=== PATIENT | female | born 1985 | race African-American/Black ===

== ENCOUNTER 2021-07-15 20:11 | Emergency (ER) | payer MEDICAID ==
[~2021-07-15] VITALS: Ht 162.6 cm; Wt 54.4 kg
[2021-07-15 20:26] VITALS: BP_SYST 129
--- NOTE | 2021-07-15 20:30 | NUR ---
Patient to ER bed 02 to gown for evaluation. Side rails up.
--- NOTE | 2021-07-15 20:45 | NUR ---
ER provider present in room.
[2021-07-15] MEDS ORDERED: METOCLOPRAMIDE HCL 10 MG/2 ML VIAL IVP ONE (21:00)
[2021-07-15] MEDS ORDERED: NACL 0.9% 1,000 ML IV ONE (21:00)
[2021-07-15] MEDS ORDERED: KETOROLAC TROMETHAMINE 30 MG VIAL IVP ONE (21:00)
[2021-07-15] MEDS ORDERED: TRAM50TA PO (21:39)
[2021-07-15 22:30] VITALS: BP_SYST 112
== END 2021-07-15 22:40 | disposition home or self-care (01) ==
LOC: SED 20:11
DX: G44.209 Tension-type headache, unspecified, not intractable (principal); E07.9 Disorder of thyroid, unspecified
CPT/HCPCS: 70450; 76376; 96361; 96374; 96375; 99284; J1885; J2765; J7030; 96360

== ENCOUNTER 2022-04-02 10:14 | Emergency (ER) | payer MEDICAID ==
[~2022-04-02] VITALS: Ht 162.6 cm; Wt 56.2 kg
[~2022-04-02 10:14] MED LIST: TRAM50TA PO
[2022-04-02 10:41] VITALS: BP_SYST 115
--- NOTE | 2022-04-02 11:56 | NUR ---
DR CHAUDHARI IN ROOM FOR EXAM
--- NOTE | 2022-04-02 11:57 | NUR ---
PT DENIES ABD PAIN, NO FEVERS, NO ONE ELSE SICK AT HOME. NO RECENT TRAVELING. SKIN W/D/I
[2022-04-02] MEDS ORDERED: LOPE2CAP PO (12:09)
[2022-04-02] MEDS ORDERED: ONDA-8 TL (12:09)
--- NOTE | 2022-04-02 13:00 | NUR ---
Patient given written and verbal discharge instructions and verbalizes understanding. ER MD discussed with patient the results and treatment provided. Patient in stable condition. ID arm band removed. Rx of IMODIUM, ZOFRAN given. Patient educated on pain management and to follow up with PMD. Pain Scale . Opportunity for questions provided and answered. Medication side effect fact sheet provided.
[2022-04-02 13:01] VITALS: BP_SYST 115
== END 2022-04-02 13:00 | disposition home or self-care (01) ==
LOC: SED 10:14
DX: R19.7 Diarrhea, unspecified (principal); R11.0 Nausea; Z79.899 Other long term (current) drug therapy
CPT/HCPCS: 99283